=== PATIENT | female | born 1985 | race African-American/Black ===

== ENCOUNTER 2021-04-26 06:19 | Emergency (ER) | payer MEDICAID ==
[~2021-04-26] VITALS: Ht 167.6 cm; Wt 147.0 kg
[2021-04-26] MEDS ORDERED: LIDOCAINE HCL/PF 1% 2ML VIAL ONE (06:43)
[2021-04-26] MEDS ORDERED: ALBUTEROL (0.083%) 2.5MG/3ML NEB HHN STA (06:56)
[2021-04-26 07:47] LABS: BASOPHILS % 0.5 % (0.0-2.0); EOSINOPHILS % 2.8 % (0.0-5.0); HEMATOCRIT. 38.7 % (36.0-48.0); HEMOGLOBIN. 13.2 g/dL (12.0-16.0); LYMPHOCYTES % 26.7 % (20.0-50.0); MEAN CORPUSCULAR HEMOGLOBIN 31.2 pg (28.0-32.0); MEAN CORPUSCULAR VOLUME 91.6 fL (81.0-99.0); MEAN PLATELET VOLUME 7.4 fl (7.4-10.4); MONOCYTES % 11.3 % (2.0-8.0); NEUTROPHILS % 58.7 % (40.0-76.0); PLATELET 257 x1000/uL (130-400); RED BLOOD CELL COUNT 4.23 mill/uL (4.2-5.4); RED CELL DISTRIBUTION WIDTH 13.8 % (11.6-14.6)
[2021-04-26 07:54] LABS: CHLORIDE 109 mEq/L (98-107)
[2021-04-26 08:45] LABS: BG BASE EXCESS 1.9 mmol/L (-2.0-2.0); BG CARBOXYHEMOGLOBIN 0.2 % (0.5-1.5); BG DEOXYHEMOGLOBIN 0.8 % (0.0-5.0); BG HCO3 ACT 28.9 mmol/L (22.0-26.0); BG METHEMOGLOBIN 0.5 % (0.0-1.5); BG OXYGEN SATURATION 99.2 % (92.0-98.5); BG OXYHEMOGLOBIN 98.5 % (94.0-97.0); BG PCO2 55.3 mmHg (35.0-45.0); BG PH 7.336 (7.350-7.450); BG PO2 186.6 mmHg (75.0-100.0); BG SAMPLE SITE LEFT RADIAL; BG TOTAL HEMOGLOBIN 13.6 g/dL (12.0-18.0); BG VENT MODE MASK - SIMPLE
[2021-04-26 09:16] VITALS: BP 165/110
[2021-04-26] MEDS ORDERED: ALBU6.7H9 INH (09:20)
== END 2021-04-26 09:40 | disposition home or self-care (01) ==
LOC: ER 06:19
DX: J40 Bronchitis, not specified as acute or chronic (principal); Z20.822 Contact with and (suspected) exposure to COVID-19; I49.9 Cardiac arrhythmia, unspecified
CPT/HCPCS: 36415; 36600; 71045; 80053; 82375; 82805; 83880; 84484; 85025; 93005; 94640; 99285; C9803; J3490; U0003; U0005; Z7610